=== PATIENT | male | born 1970 | race Asian ===

== ENCOUNTER → 2022-06-28 15:37 | Outpatient (CLI) | payer OTHER, SELFPAY ==
--- NOTE | 2022-06-28 15:41 | DI.CT.S_ITS ---
PROCEDURE: CT IVP A/P W/WO INDICATIONS: Personal history of urinary calculi TECHNIQUE: 5 mm thick noncontrast images acquired from the diaphragm to the symphysis pubis. After the administration of intravenous contrast, 5 mm thick images acquired from the diaphragm to the symphysis pubis after a 10-minute delay/split bolus technique. 2 mm thick coronal and sagittal reformats were then performed of the kidneys and ureters. For radiation dose reduction, the following was used: automated exposure control, adjustment of mA and/or kV according to patient size. COMPARISON: [facility], CR, XR ABDOMEN 1 VIEW, 06/20/2022, 11:34. FINDINGS: Image quality: Adequate. Lung bases: No pleural effusion. Urinary system: 8 mm nonobstructing stone right inferior kidney, internal density 563 Hounsfield units. Smaller nonobstructing stone present at the right mid kidney. 4 mm stone present at the right proximal ureter. No right hydroureteronephrosis. Few punctate/1 mm nonobstructing stones present in the left kidney. No left hydroureteronephrosis. Scattered subcentimeter hypodensities are present which are too small to characterize but are statistically likely to represent benign cysts. No definite evidence of a solid renal mass. The opacified portions of the renal collecting systems and ureters are unremarkable without a definite filling defect demonstrated other than above described urinary stones. Both distal ureters are not opacified and are not well evaluated. No bladder stones visualized. Other solid organs: The liver is hypoattenuating compatible with steatosis. Gallbladder is absent . Biliary system is non dilated. Pancreas enhances normally. Spleen is normal in size and enhancement. No adrenal nodules. Peritoneum and bowel: No bowel obstruction. No free air or substantial free fluid. Nodes and vessels: No retroperitoneal or mesenteric adenopathy by size criteria. Aorta and inferior vena cava are normal in size. Pelvis: No pathologic free pelvic fluid. No adenopathy. Bones: Multilevel degenerative change of the visualized spine. IMPRESSION: Multiple urinary stones are present as above, including a 4 mm stone at the right proximal ureter. No hydroureteronephrosis visualized bilaterally. Dictated by: Johan Liu M.D. on 06/29/2022 at 14:04 Approved by: Johan Liu M.D. on 06/29/2022 at 14:24
== END ==
PROVIDERS: Family Provider Family Medicine; PCP Family Medicine; Referring Provider Urology; Visit Provider Urology
DX: Z87.442 Personal history of urinary calculi (principal); N20.2 Calculus of kidney with calculus of ureter
CPT/HCPCS: 74178; Q9967